=== PATIENT | female | born 1990 | race Caucasian/White ===

== ENCOUNTER 2023-12-04 20:13 | Inpatient (IN) ==
[2023-12-04] MEDS ORDERED: LIDOCAINE 1% LOCAL 20 ML VIAL INFIL PRN (21:17)
[2023-12-04 21:45] LABS: Hematocrit (blood only) 32.2 % (37.0-47.0); Hemoglobin 10.3 g/dl (12.0-16.0); Mean Corpuscular Hemoglobin 26.5 pg (25.0-34.0); Mean Corpuscular Volume 82.8 fL (80.0-100.0); Mean Platelet Volume 12.7 fL (9.4-12.4); Platelet Count 165 K/uL (130-400); RDW Coefficient of Variation 13.8 % (11.5-14.5); RDW Standard Deviation 41.1 fL (36.4-46.3); Red Blood Count 3.89 M/uL (4.20-5.40); White Blood Count 8.94 K/ul (4.8-10.8)
--- NOTE | 2023-12-04 22:07 | History & Physical Report ---
Date of Service December 04, 2023 Assessment & Plan (1) Normal labor: Plan: Ani is a 33-year-old G3, P1 currently at 39 weeks 1 day gestational age presents in early labor. 1. Fetus: Cat 1 2. Labor: Progressing spontaneously. Will augment as needed 3. GBS negative. 4. Vitals within normal limits (2) Term : History of Present Illness Primary Care Provider: Anjelica Elias MD Ani is a 33-year-old G3, P1 currently at 39 weeks 1 day gestational age presents in early labor. Reports contractions increasing in frequency and intensity. Denies leakage of fluid or vaginal bleeding reporting good movement. has been uncomplicated to date. OB Labs: Blood Type B Positive 05/09/23 Antibody Screen NEGATIVE 05/09/23 Hemoglobin 11.2 g/dl (12.0-16.0) L 09/19/23 Hematocrit 34.5 % (37.0-47.0) L 09/19/23 Mean Corpuscular Volume 84.6 fL (80.0-100.0) 05/09/23 Platelet Count 255 K/uL (130-400) 05/09/23 Rubella IgG Antibody Immune (Immune) 05/09/23 Rapid Plasma Reagin Nonreactive (Nonreactive) 05/09/23 Hepatitis B Surface Antigen. NON-REACTIVE (NON-REACTIVE) 05/09/23 Hepatitis C Antibody (EIA) NON-REACTIVE (NON-REACTIVE) 05/09/23 HIV (1&2) Ag and Ab Confirmation NON-REACTIVE (NON-REACTIVE) 05/09/23 Glucose 1 Hour 50 gm Load 143 mg/dl (70-130) H 09/19/23 OB Optional Labs: Chlamydia trachomatis RNA Not Detected (NotDetected) 05/09/23 Neisseria gonorrhoeae RNA Not Detected (NotDetected) 05/09/23 Thyroid Stimulating Hormone (TSH) 1.900 uIu/ml (0.300-4.500) 02/06/19 Labs Reviewed: Declines carrier screening--mln cfdna-low risk--mln Allergies Allergy/AdvReac Type Severity Reaction Status Date / Time pollen extracts Allergy Intermediate ITCHY Verified 11/28/23 09:12 EYES, SNEEZING, CONGESTION No Known Drug Allergies Allergy Verified 11/28/23 09:12 Home Medications Medication Instructions Recorded Confirmed Type prenat.vits,kayce,yqm-lvow-pwuts 1 tab PO DAILY 05/26/20 12/04/23 History Patient History Medical History (Updated 12/04/23 @ 22:05 by Mario Alberto Cunningham MD) History of chicken pox Seizure-like activity Possible as toddler/infant ~2019 seizure-like activity in context of choking episode ([facility])- "provoked" per neuro. EEG recommended, done 06/2020 without significant findings Surgical History S/P dilatation and curettage Family History Mother Aneurysm Clotting disorder Brother Diabetes Denies family history of Ovarian cancer Prostate cancer Myocardial infarction Breast cancer Colorectal cancer Social History (Updated 04/29/23 @ 09:59 by Alexa Hill) Smoking Status: Former smoker Tobacco Type: Cigarettes Age Started Using Tobacco: 19; Age Quit Using Tobacco: 23; packs per day: 0.5; Second Hand Exposure: No; Do You Dip or Chew Tobacco: No; Hx Alcohol Use: No Hx Substance Use: No Preferred Language: Mauritian Communication Ability: Effective Visual Impairment: No Limitations Hearing Ability: Normal Pet Caretaker Required: No Beliefs That Will Affect Care: None marital status: marital status details: Trenton Damico (28) [phone] Current Living Situation: Spouse and Family Current Living Situation Comment: lives with spouse, daughter, dog, cat-spouse changing litter current occupational status: employed current occupation: human resources-[employer] Other Information That Helps Us Care for You: No Feels Safe at Home: Yes Safety Concerns: Feels Safe At This Time Childhood Exposure to Second-Hand Smoke: No Dental Care, Regularly: Yes Physical Activity Frequency: Does not Exercise Seatbelt Use: always Sunscreen Use: Yes Assistive Devices: Contacts and Glasses Physical Exam Genitourinary: normal external appearance OB Exam Abdomen: + vertex Manual OB Exam: + cervical dilation (4.5) OB Exam Monitor Tracing: + external FHT monitor used, + external uterine monitor used, + category I and + normal FHT variability Exam per nurse Results & Data Vital Signs (Past 12 Hours) Vital Signs Temp Pulse Resp BP 12/04/23 20:34 36.7 C 71 18 104/65 05/05/24 20:28 36.7 C 18 Coding Level of Care Code None Diagnoses Normal labor O80; Z37.9 Term Z34.90
[2023-12-04] MEDS: LACTATED RINGER'S 1,000 ML IV PRN (22:18)
[2023-12-04] MEDS: fentANYL 2 MCG/ML BUPIVacaine 0.125%-NSS 100ML BAG ONE (22:42)
[2023-12-04] MEDS: BUPIVACAINE 0.25% PF 30 ML VIAL ONE (23:01)
[2023-12-04] MEDS: LIDOCAINE 2%/EPINEPHRINE 1:200,000 20 ML PF ONE (23:02)
[2023-12-04] MEDS: ePHEDrine sulfate 50 MG/ML AMP ONE (23:03)
[2023-12-04] MEDS: fentaNYL citrate PF 100 MCG/2 ML VIAL ONE (23:06)
[2023-12-04] MEDS: SODIUM CHLORIDE 0.9% PF INJ 10 ML VIAL ONE (23:06)
--- NOTE | 2023-12-04 23:13 | Anesthesiology Consultation ---
Date of Service December 04, 2023 Assessment & Plan Chart Review Chart Review: Acceptable Risk for Labor Epidural Consults Requested none History Height/Weight Height: 5 ft 4 in Weight: 80.739 kg Allergies Allergy/AdvReac Type Severity Reaction Status Date / Time pollen extracts Allergy Intermediate ITCHY Verified 11/28/23 09:12 EYES, SNEEZING, CONGESTION No Known Drug Allergies Allergy Verified 11/28/23 09:12 Medications Home Medications Medication Instructions Recorded Confirmed Last Taken prenat.vits,kayce,siz-dtmi-mmamv 1 tab PO DAILY 05/26/20 12/04/23 12/04/23 09:00 Active Medications Generic Name Dose Route Start Last Admin Trade Name Freq PRN Reason Stop Dose Admin Lactated Ringer's 1,000 mls @ 125 mls/hr 12/04/23 21:17 12/04/23 22:18 Lr IV 12/06/23 21:16 999 mls/hr .Q8H PRN Administration L&D Protocol Protocol Past Medical History Medical History (Updated 12/04/23 @ 22:05 by Mario Alberto Cunningham MD) History of chicken pox Seizure-like activity Possible as toddler/ ~2019 seizure-like activity in context of choking episode ([facility])- "provoked" per neuro. EEG recommended, done 06/2020 without significant findings Past Family History Family History Mother Aneurysm Clotting disorder Brother Diabetes Denies family history of Ovarian cancer Prostate cancer Myocardial infarction Breast cancer Colorectal cancer Past Surgical History Surgical History S/P dilatation and curettage Social History Smoking Status: Former smoker tobacco type: cigarettes Do You Dip or Chew Tobacco: No Hx Alcohol Use: No Hx Substance Use: No substance use type: does not use Physical Exam Vital Signs Last Vital Signs Temp 36.7 C 12/04/23 20:34 Pulse 116 H 12/04/23 23:09 Resp 18 12/04/23 20:34 BP 99/51 L 12/04/23 23:09 Pulse Ox 100 12/04/23 23:09 Testing Laboratory Results 12/04/23 21:24
[2023-12-04] MEDS ORDERED: NALBUPHINE HCL 5 MG in SYRINGE 0 ML IV PRN (23:16)
[2023-12-04] MEDS ORDERED: LIDOCAINE 2% MPF LOCAL 5 ML VIAL EPI PRN (23:16)
[2023-12-04] MEDS ORDERED: fentANYL 2 MCG/ML BUPIVacaine 0.125%-NSS 100ML BAG EPI PRN (23:16)
[2023-12-04] MEDS ORDERED: SODIUM CHLORIDE 0.9% PF INJ 10 ML VIAL EPI PRN (23:16)
[2023-12-04] MEDS ORDERED: fentaNYL citrate PF 100 MCG/2 ML VIAL EPI PRN (23:16)
[2023-12-04] MEDS ORDERED: NALOXONE HCL 0.4 MG/1 ML VIAL/CARP IV PRN (23:16)
[2023-12-04] MEDS ORDERED: NALOXONE HCL 1 MG in SODIUM CHLORIDE 0.9% 1,000 ML IV PRN (23:16)
[2023-12-04] MEDS ORDERED: ROPIVACAINE 0.5% PF 5 MG/ML 20 ML VIAL EPI PRN (23:16)
[2023-12-04] MEDS ORDERED: BUPIVACAINE 0.25% PF 30 ML VIAL EPI PRN (23:16)
[2023-12-04] MEDS ORDERED: ePHEDrine sulfate 50 MG/ML AMP IV PRN (23:16)
[2023-12-04] MEDS ORDERED: diphenhydrAMINE 50 MG/ML VIAL IV PRN (23:16)
[2023-12-05] MEDS: fentaNYL citrate PF 100 MCG/2 ML VIAL EPI STA (00:20)
[2023-12-05] MEDS: BUPIVACAINE 0.25% PF 30 ML VIAL EPI STA (00:20)
[2023-12-05] MEDS: SODIUM CHLORIDE 0.9% PF INJ 10 ML VIAL EPI STA (00:21)
[2023-12-05] MEDS: LIDOCAINE 2%/EPINEPHRINE 1:200,000 20 ML PF EPI STA (00:21)
[2023-12-05] MEDS: OXYTOCIN 30 UNITS/NSS 30 UNITS/500 ML BAG IV PRN (01:10)
[2023-12-05] MEDS ORDERED: ACETAMINOPHEN 325 MG TAB PO PRN (01:34)
[2023-12-05] MEDS ORDERED: HYDROCORTISONE ACETATE 25 MG SUPP PR PRN (01:34)
[2023-12-05] MEDS ORDERED: OXYTOCIN 30 UNITS/NSS 30 UNITS/500 ML BAG IV PRN (01:34)
[2023-12-05] MEDS: DIPHTHER/TETAN/PERTUS Vaccine (Tdap, Adol/Adult) 0.5mL IM ONE (01:46)
--- NOTE | 2023-12-05 03:22 | Anesthesia Procedure Note ---
Date of Service December 05, 2023 Anesthesia Post Epidural Note Vital Signs Vital Signs: Temp Pulse Resp BP Pulse Ox 36.7 C 80 18 109/58 L 91 12/05/23 02:15 12/05/23 03:16 12/05/23 02:15 12/05/23 03:16 12/05/23 01:11 Notes Mental Status: alert / awake / arousable Nausea / Vomiting: adequately controlled Pain: adequately controlled Airway Patency, RR, SpO2: stable & adequate BP & HR: stable & adequate Hydration State: stable & adequate Neuraxial Anesthesia: was administered and sensory block is resolving Anesthetic Complications: no major complications apparent and Pt Satisfied with anesthetic care Epidural: Removed without complications and With tip intact
[2023-12-05] MEDS: BENZOCAINE 20% SPRY 85 APPLN/85 GM CAN EXT PRN (03:55)
--- NOTE | 2023-12-05 08:22 | Delivery Summary ---
Vaginal Delivery Summary Date of Service December 05, 2023 Vaginal Delivery Summary Patient progressed to 10 cm dilated 100% effaced +2 station pushed over intact perineum with epidural anesthesia and delivered a viable with weight and Apgars pending. Had the delivered in ELISE position and transition to right transverse. No nuchal cord was noted, shoulder antibodies soon followed and was noted be vigorous upon delivery. A 1 minute delayed cord clamping was initiated. Cord was double clamped and cut. remained in maternal abdomen. Attention was turned to deliver the placenta was delivered intact three-vessel cord gentle cord traction. Inspection of perineum vagina and cervix are noted to be no lacerations. Sponge and instrument counts correct at the completion of the case. Blood loss per QBL and no complications noted [facility] Vaginal Delivery Charge Delivery Type Details: [facility]
[2023-12-05] MEDS: PRENATAL VITAMIN 1 TAB PO SCH (08:25)
[2023-12-05] MEDS: DOCUSATE SODIUM 100 MG CAP PO SCH (08:25)
[2023-12-05] MEDS: IBUPROFEN 600 MG TAB PO PRN (10:43)
[2023-12-06 06:20] LABS: Hemoglobin 8.9 g/dl (12.0-16.0)
--- NOTE | 2023-12-06 08:09 | Obstetrical Progress Note ---
Date of Service December 06, 2023 Assessment & Plan (1) Encounter for care after hospital delivery: Plan Desires d/c. Instructions given. Call with any concerns or issues Day #:: 1 Subjective Ambulation: ambulating normally Voiding: no voiding problems Passing Gas:: Yes Diet Tolerance:: regular diet Lochia:: Small Feeding Type:: breast feeding Doing well. Desires d/c. Physical Exam Constitutional WD/WN, vitals as above Neck trachea midline, no thyromegaly Respiratory normal respiratory effort, lungs clear to auscultation Cardiovascular RRR, no murmur, no edema Gastrointestinal (Abdomen) soft, nt, nd ff/nt 1 below u Results & Data Vital Signs (Past 12 Hours) Vital Signs Temp Pulse Resp BP Pulse Ox O2 Del Method 12/06/23 01:01 36.6 C 90 18 119/80 98 Room Air 12/05/23 20:15 36.8 C 90 18 109/69 98 Room Air
[2023-12-06] MEDS ORDERED: bisacodyL 5 MG TABEC PO SCH (20:00)
[2023-12-07] MEDS ORDERED: bisacodyL 10 MG SUPP PR PRN (01:34)
== END 2023-12-06 12:15 | disposition home or self-care (01) | DRG 807 ==
LOC: OPB 20:13 → 4S1 20:15 → 4E2 12-05 05:05